=== PATIENT | female | born 1985 | race Hispanic/Latino ===

== ENCOUNTER 2018-08-24 18:25 | Inpatient (IN) | payer BC, OTHER ==
[2018-08-24] MEDS ORDERED: Sodium Chloride 0.9% 1,000 ML IV STA (18:49)
--- NOTE | 2018-08-24 18:53 | ED PDOC ---
HPI: SOB/CHF/COPD Time Seen by Provider: 08/24/18 18:35 Chief Complaint (Nursing): Shortness Of Breath History Per: Patient Onset/Duration Of Symptoms: Days (3) Current Symptoms Are (Timing): Still Present Associated Symptoms: Fever. denies: Chest Pain Recently: Treated By A Physician Additional Complaint(s): Referred from urgent care for fever, SOB. Tested positive for strep and has been treated with antibiotics. Seen at urgent care today for LLQ pain assoc with nausea and vomiting. Denies diarrhea. Denies urinary sxs. LMP ended yesterday. Past Medical History Vital Signs: Last Vital Signs Temp 101 F H 08/24/18 18:36 Pulse 113 H 08/24/18 18:36 Resp 20 08/24/18 18:36 BP 107/71 08/24/18 18:36 Pulse Ox 99 08/24/18 18:36 - Medical History PMH: No Chronic Diseases - Family History Family History: States: Unknown Family Hx - Home Medications Home Medications: Ambulatory Orders Medication Instructions Recorded Cyclobenzaprine [Cyclobenzaprine 10 mg PO Q8 PRN #12 tab 11/01/15 HCl] Naproxen [Naprosyn] 500 mg PO BID PRN #16 tablet 11/01/15 - Allergies Allergies/Adverse Reactions: Allergies Allergy/AdvReac Type Severity Reaction Status Date / Time No Known Allergies Allergy Verified 08/24/18 18:36 Review of Systems ROS Statement: Except As Marked, All Systems Reviewed And Found Negative Constitutional: Positive for: Fever Respiratory: Positive for: Shortness of Breath Gastrointestinal: Positive for: Abdominal Pain, Diarrhea Genitourinary Female: Negative for: Dysuria, Frequency Musculoskeletal: Positive for: Back Pain Physical Exam - Physical Exam Appears: Positive for: Non-toxic, No Acute Distress Skin: Positive for: Normal Color, Warm, DRY ENT: Positive for: Pharyngeal Erythema, Tonsillar Swelling. Negative for: Tonsillar Exudate Neck: Positive for: Normal, Painless ROM Cardiovascular/Chest: Positive for: Regular Rate, Rhythm, Tachycardia Respiratory: Positive for: Rhonchi (Scattered bilat). Negative for: Wheezing, Respiratory Distress Gastrointestinal/Abdominal: Positive for: Bowel Sounds, Soft, Tenderness (Left and right lower quadrants with rebound), Rebound Back: Positive for: Normal Inspection. Negative for: L CVA Tenderness, R CVA Tenderness, Vertebral Tenderness Extremity: Positive for: Normal ROM. Negative for: Tenderness, Swelling Neurologic/Psych: Positive for: Alert, Oriented. Negative for: Motor/Sensory Deficits - ECG O2 Sat by Pulse Oximetry: 99 Medical Decision Making Medical Decision Making: EKG reveals sinus tachycardia rate 115. Down sloping ST segments 2,3, AVF as well as V4 and V5. Pt states no previous EKGs done recently for comparison Will obtain troponin as well as d-dimer although pt has no risk factors for CAD or PE. Will obtain CT chest PE study as well as CT abd/pelvis. Considering possible endocarditis given recent h/o strep. Will give 1 dose Vancomycin and gentamycin Disposition - Clinical Impression Clinical Impression: SOB (shortness of breath), Abdominal pain - Patient ED Disposition Is Patient to be Admitted: Transfer of Care - Disposition Disposition: Transfer of Care Disposition Time: 19:06 Condition: FAIR Patient Signed Over To: Lynette Bush (Pending CT and labs)
[2018-08-24] MEDS ORDERED: Gentamicin 80mg/50ml NS 80 MG/50 ML BAG IVPB STA (19:03)
[2018-08-24 19:34] LABS: EOS % 0.1 % (0.0-4.0); HEMOGLOBIN 13.1 g/dL (12.0-16.0); LYMPH # 0.3 K/uL (1.0-4.3); LYMPH % 2.5 % (20.0-40.0); MEAN CELL VOLUME 91.4 fl (81.0-99.0); MEAN CORPUSCULAR HEMOGLOBIN 30.3 pg (27.0-31.0); MEAN CORPUSCULAR HGB CONC 33.1 g/dL (33.0-37.0); MEAN PLATELET VOLUME 8.2 fl (7.2-11.7); MONO # 0.6 K/uL (0.0-0.8); MONO % 5.5 % (0.0-10.0); NEUT # 10.4 K/uL (1.8-7.0); NEUT % 91.9 % (50.0-75.0); PLATELET COUNT 212 K/uL (130-400); RBC 4.33 Mil/uL (3.80-5.20); RED CELL DISTRIBUTION WIDTH 12.6 % (11.5-14.5); WHITE BLOOD COUNT 11.4 K/uL (4.8-10.8)
--- NOTE | 2018-08-24 19:34 | ED PDOC ---
- Laboratory Results Result Diagrams: 08/27/18 04:30 08/27/18 04:30 - ECG O2 Sat by Pulse Oximetry: 99 (RA) Pulse Ox Interpretation: Normal Medical Decision Making Medical Decision Making: Time: 1899 --Patient signed out to this provider by Dr. Houston, pending CT, troponin, and d dimer. Time: 2258 --CTA chest FINDINGS: PULMONARY ARTERIES No evidence of central or segmental pulmonary embolism is seen. AORTA There is no evidence for aneurysm or dissection of the thoracic aorta. LUNGS The lungs appear clear. PLEURAL SPACES No evidence of pneumothorax. No pleural effusion. HEART Normal heart size. No pericardial effusion. LYMPH NODES No lymphadenopathy is evident. BONES No focal osseous abnormality or acute fracture. UPPER ABDOMEN Images of the upper abdomen are unremarkable. IMPRESSION: Unremarkable pulmonary embolism protocol CTA of the chest. Time: 5 --CT ABD/pelvis FINDINGS: LUNG BASES: The lung bases appear clear. No pleural effusions are seen. LIVER: Unremarkable. GALLBLADDER AND BILE DUCTS: The gallbladder appears within normal limits. No radioopaque gallstones are seen. No biliary ductal dilatation is evident. PANCREAS: Unremarkable. SPLEEN: Unremarkable. ADRENAL GLANDS: Unremarkable. KIDNEYS, URETERS, AND BLADDER: The kidneys appear within normal limits. There is no hydronephrosis or hydroureter. No urinary calculi are seen. The urinary bladder is normal in size and configuration. STOMACH AND BOWEL: Unremarkable appearance of the stomach. No evidence of bowel obstruction. Mild mucosal wall thickening and fluid filling is seen within the duodenum an ileal small intestinal tract suggesting duodenitis and ileitis. APPENDIX: No evidence of acute appendicitis on CT examination. PERITONEUM: A small volume of free fluid is noted in the posterior cul-de-sac. No free air. LYMPH NODES: No lymphadenopathy is evident. REPRODUCTIVE: A 1.6 x 1.8 cm cyst is seen in the right ovary. VASCULATURE: No evidence of abdominal aortic aneurysm. BONES: No aggressive appearing osseous lesion. No acute osseous pathology evident. IMPRESSION: 1. TZaza of duodenitis and ileitis. 2. 1.8 cm right ovarian cyst. 3. A small volume of fluid is seen in the posterior cul-de-sac. Time: 0046 --Attempt to reach personal care attendant and medical service education reporter. Time: 109 --Case discussed with personal care attendant, Dr. Chang, who is agreeable to plan and has no further recommendations. Will follow up with patient at bedside in the morning. Scribe Attestation: Documented by Jayda Ko and Silvia Boston, acting as scribes for Lynette Bush MD. Provider Scribe Attestation: All medical record entries made by the Scribe were at my direction and personally dictated by me. I have reviewed the chart and agree that the record accurately reflects my personal performance of the history, physical exam, medical decision making, and the department course for this patient. I have also personally directed, reviewed, and agree with the discharge instructions and disposition. Disposition - Clinical Impression Clinical Impression: SOB (shortness of breath), Abdominal pain - POA Present On Arrival: None - Disposition Disposition: Admitted as In-Patient Disposition Time: 00:17 Condition: FAIR
[2018-08-24 19:44] LABS: ALB/GLOB RATIO 1.5 (1.0-2.1); ALBUMIN 4.3 g/dL (3.5-5.0); ALT/SGPT 17 U/L (9-52); AST/SGOT 22 U/L (14-36); BLOOD UREA NITROGEN 19 mg/dl (7-17); CALCIUM 8.6 mg/dL (8.4-10.2); GFR NON-AFRICAN AMERICAN > 60
[2018-08-24 20:12] LABS: VENOUS BLOOD GAS BASE EXCESS 3.4 mmol/L (0.0-2.0); VENOUS BLOOD GAS PCO2 36 mmHg (40-60); VENOUS BLOOD GAS PO2 21 mm/Hg (30-55); VENOUS BLOOD PH 7.48 (7.32-7.43)
[2018-08-24] MEDS ORDERED: Iodixanol 320 MG/ML 100 ML BOTTLE IV ONE (20:25)
[2018-08-24] MEDS ORDERED: Sodium Chloride 0.9% 50 ML IV ONE (20:25)
[2018-08-24 21:08] LABS: SQUAMOUS EPITHIAL 3 /hpf (0-5); URINE BACTERIA RARE (<OCC); URINE BILIRUBIN NEGATIVE (NEGATIVE); URINE BLOOD NEGATIVE (NEGATIVE); URINE COLOR YELLOW (YELLOW); URINE GLUCOSE (UA) NEG (NEGATIVE); URINE HYALINE CAST 0-2 /hpf (0-2); URINE LEUKOCYTE ESTERASE NEG Leu/uL (Negative); URINE PROTEIN 30 mg/dL (NEGATIVE); URINE UROBILINOGEN 0.2-1.0 mg/dL (0.2-1.0)
[2018-08-24 21:14] LABS: ANISOCYTOSIS SLIGHT; BANDS 5 % (0-2); EOSINOPHIL 1 % (0-7); HYPOCHROMIC SLIGHT; LYMPHOCYTE 4 % (20-50); MONOCYTE 6 % (0-10); NEUTROPHIL 84 % (42-75); PLATELET ESTIMATE NORMAL (NORMAL); TOTAL CELLS COUNTED 100
[2018-08-24 21:31] LABS: URINE CLARITY SLIGHT-CLOUDY (Clear)
[2018-08-24] MEDS ORDERED: Vancomycin 1 g Inj ONE (21:47)
[2018-08-25] MEDS ORDERED: Gentamicin 80 mg/2mL Inj. ONE (00:53)
[2018-08-25 06:23] LABS: HEMOGLOBIN 11.7 g/dL (12.0-16.0); MEAN CELL VOLUME 90.6 fl (81.0-99.0); MEAN CORPUSCULAR HEMOGLOBIN 30.8 pg (27.0-31.0); RBC 3.8 Mil/uL (3.80-5.20); RED CELL DISTRIBUTION WIDTH 12.5 % (11.5-14.5); WHITE BLOOD COUNT 4.8 K/uL (4.8-10.8)
[2018-08-25 06:38] LABS: ALB/GLOB RATIO 1.3 (1.0-2.1); ALBUMIN 3.4 g/dL (3.5-5.0); ALT/SGPT 24 U/L (9-52); AST/SGOT 18 U/L (14-36); BLOOD UREA NITROGEN 18 mg/dl (7-17); CALCIUM 7.9 mg/dL (8.4-10.2); GFR NON-AFRICAN AMERICAN > 60; HDL CHOLESTEROL 34 MG/DL (30-70)
[2018-08-25 06:47] LABS: LDL CHOLESTEROL 36 mg/dL (0-129)
--- NOTE | 2018-08-25 09:45 | CT ---
Date of service: 08/24/2018 PROCEDURE: CT Chest with contrast (Pulmonary Angiogram) HISTORY: SOB, Tachycardia COMPARISON: None available. TECHNIQUE: Axial computed tomography images were obtained of the chest in the pulmonary arterial phase of enhancement. Coronal and sagittal reformatted images were created and reviewed. Intravenous contrast dose: 95 mL Visipaque 320 Radiation dose: Total exam DLP = 528.98 mGy-cm. This CT exam was performed using one or more of the following dose reduction techniques: Automated exposure control, adjustment of the mA and/or kV according to patient size, and/or use of iterative reconstruction technique. FINDINGS: PULMONARY ARTERIES: Unremarkable. No pulmonary embolism. AORTA: No acute findings. No thoracic aortic aneurysm. No aortic atherosclerotic calcification or mural plaque present. LUNGS: Unremarkable. No nodule, mass or pulmonary consolidation. PLEURAL SPACES: Unremarkable. No effusion or pneumothorax. HEART: Unremarkable. No cardiomegaly. No significant pericardial effusion. LYMPH NODES: No lymphadenopathy. BONES, CHEST WALL: Unremarkable. No fracture or destructive lesion OTHER FINDINGS: Unremarkable. IMPRESSION: Unremarkable CT pulmonary angiogram. No pulmonary embolus.
--- NOTE | 2018-08-25 10:01 | CT ---
Date of service: 08/24/2018 PROCEDURE: CT Abdomen and Pelvis with contrast HISTORY: Abd pain COMPARISON: None. TECHNIQUE: Contrast dose: 95 mL Visipaque 320 Radiation dose: Total exam DLP = 322.91 mGy-cm. This CT exam was performed using one or more of the following dose reduction techniques: Automated exposure control, adjustment of the mA and/or kV according to patient size, and/or use of iterative reconstruction technique. FINDINGS: LOWER THORAX: Unremarkable. LIVER: Unremarkable. No gross lesion or ductal dilatation. GALLBLADDER AND BILE DUCTS: Unremarkable. PANCREAS: Unremarkable. No gross lesion or ductal dilatation. SPLEEN: Unremarkable. ADRENALS: Unremarkable. No mass. KIDNEYS AND URETERS: Unremarkable. No hydronephrosis. No solid mass. VASCULATURE: Unremarkable. No aortic aneurysm. No aortic atherosclerotic calcification or mural plaque present. BOWEL: Unremarkable. No obstruction. No gross mural thickening. APPENDIX: Normal appendix. PERITONEUM: Unremarkable. Trace pelvic free fluid. No free air. LYMPH NODES: Unremarkable. No enlarged lymph nodes. BLADDER: Unremarkable. REPRODUCTIVE: Prominent follicular ovaries. BONES: No acute fracture. OTHER FINDINGS: None. IMPRESSION: Unremarkable contrast enhanced CT of the abdomen and pelvis.
--- NOTE | 2018-08-25 10:11 | RAD ---
Date of service: 08/24/2018 HISTORY: Cough COMPARISON: Chest radiograph dated 11/01/2015. TECHNIQUE: Chest PA and lateral FINDINGS: LUNGS: No active pulmonary disease. PLEURA: No significant pleural effusion identified. No pneumothorax apparent. CARDIOVASCULAR: No aortic atherosclerotic calcification present. Normal cardiac size. No pulmonary vascular congestion. OSSEOUS STRUCTURES: No significant abnormalities. VISUALIZED UPPER ABDOMEN: Normal. OTHER FINDINGS: None. IMPRESSION: No active disease.
[2018-08-25] MEDS: Enoxaparin 40 mg Syringe SC SCH (10:49)
[2018-08-25 14:08] LABS: BARBITURATES, UR NEGATIVE (NEGATIVE); BENZODIAZEPINES, UR NEGATIVE (NEGATIVE); OPIATES, UR NEGATIVE (NEGATIVE); PHENCYCLIDINE, UR NEGATIVE (NEGATIVE)
--- NOTE | 2018-08-25 18:45 | CARD ---
APPROVED REPORT Date of service: 08/25/2018 EXAM: Two-dimensional and M-mode echocardiogram with Doppler and color Doppler. Other Information Quality : GoodRhythm : NSR INDICATION Abnormal EKG/Arrhythmia 2D DIMENSIONS IVSd0.65 (0.7-1.1cm)LVDd4.70 (3.9-5.9cm) LVOT Diameter2.43 (1.8-2.4cm)PWd0.86 (0.7-1.1cm) IVSs0.99 (0.8-1.2cm)LVDs3.14 (2.5-4.0cm) FS (%) 33.2 %PWs1.43 (0.8-1.2cm) M-Mode DIMENSIONS Left Atrium (MM)3.30 (2.5-4.0cm)IVSd0.53 (0.7-1.1cm) Aortic Root2.53 (2.2-3.7cm)LVDd4.61 (4.0-5.6cm) Aortic Cusp Exc.1.96 (1.5-2.0cm)PWd0.98 (0.7-1.1cm) IVSs0.91 cmFS (%) 35 % LVDs3.01 (2.0-3.8cm)PWs1.51 cm Aortic Valve AoV Peak Zvjjerou622.9cm/sAoV VTI27.0cmAO Peak GR.8mmHg LVOT Peak Jnpsmqae771.3cm/sLVOT VTI21.93cmAO Mean GR.4mmHg CAT[place]INA (VMAX)1.48to1LFA (VTI)2.04cm2 Mitral Valve MV E Ktqhhpor41.8cm/sMV DECEL [id number] A Iwbxgkxu07.5cm/s MV TRM74feI/A ratio2.0MVA (PHT)3.49cm2 TDI Lateral E' Peak V18.90cm/sMedial E' Peak V15.07cm/sE/Lateral E'3.5 E/Medial E'4.4 LEFT VENTRICLE The left ventricle is normal size. There is normal left ventricular wall thickness. The left ventricular systolic function is normal. The estimated ejection fraction is 60-65% No regional wall motion abnormalities noted.. The left ventricular diastolic function is normal. No left ventricle thrombus noted on this study. There is no ventricular septal defect visualized. There is no left ventricular aneurysm. There is no mass noted in the left ventricle. RIGHT VENTRICLE The right ventricle is normal size. There is normal right ventricular wall thickness. The right ventricular systolic function is normal. ATRIA The left atrium size is normal. The right atrium size is normal. Cannot rule out the possibility of PFO or small ASD. AORTIC VALVE The aortic valve is normal in structure. No aortic regurgitation is present. There is no aortic valvular stenosis. There is no aortic valvular vegetation. MITRAL VALVE The mitral valve is normal in structure. There is no evidence of mitral valve prolapse. There is no mitral valve stenosis. There is trace mitral valve regurgitation noted. TRICUSPID VALVE The tricuspid valve is normal in structure. There is no tricuspid valve regurgitation noted. There is no tricuspid valve prolapse or vegetation. There is no tricuspid valve stenosis. PULMONIC VALVE The pulmonary valve is normal in structure. There is no pulmonic valvular regurgitation. There is no pulmonic valvular stenosis. GREAT VESSELS The aortic root is normal in size. The ascending aorta is normal in size. The pulmonary artery is normal. The IVC is normal in size and collapses >50% with inspiration. PERICARDIAL EFFUSION There is no pericardial effusion. There is no pleural effusion. <Conclusion> The estimated ejection fraction is 60-65% The left ventricular diastolic function is normal. The left atrium size is normal. There is trace mitral valve regurgitation noted. There is no tricuspid valve regurgitation noted.
--- NOTE | 2018-08-25 19:44 | HP ---
CHIEF COMPLAINT: Shortness of breath, chest pain and generalized body ache. HISTORY OF PRESENT ILLNESS: This is a 33-year-old female who had strep infection and was having generalized body ache, generalized malaise, weakness or abdominal pain, chest pain, shortness of breath, so the patient was sent to emergency room and was admitted for further management. REVIEW OF SYSTEMS: Positive for generalized malaise, weakness, fatigue, tired, generalized body ache, abdominal pain, chest pain, shortness of breath. Review of systems is otherwise is negative for headache, dizziness, syncope, loss of consciousness, nausea, vomiting, diarrhea, constipation, any new joint or extremity pain. Review of system of all other organ system is unremarkable. PAST MEDICAL HISTORY: Significant for anxiety. PAST SURGICAL HISTORY: Unremarkable. PERSONAL HISTORY: The patient is currently nonsmoker, nondrinker, no substance abuse. MEDICATIONS: The patient is on naproxen and . ALLERGIES: THE PATIENT IS NOT ALLERGIC TO ANY MEDICATIONS. FAMILY HISTORY: Noncontributory. PHYSICAL EXAMINATION: GENERAL: Well-built, well-nourished 33-year-old female in no acute distress. VITAL SIGNS: Temperature 97.9, pulse 80, respirations 19, blood pressure 97/61. No orthostatic changes. HEENT: Pupils reacting to light. No JVD. No thyromegaly. No lymphadenopathy. No nystagmus. Normocephalic, atraumatic skull. HEART: S1 and S2, normal and regular. No significant murmur, gallop or rub is heard. LUNGS: Shows good bilateral air exchange. No rales or rhonchi. ABDOMEN: Soft, nontender. No organomegaly. No fluid. Bowel sounds are plus and normal. EXTREMITIES: No edema. No calf swelling or tenderness. No acute ischemia. CENTRAL NERVOUS SYSTEM: Essentially unchanged and there is no sign of any acute gross focal motor or sensory neurological deficit. DIAGNOSTIC DATA: Available diagnostic data reviewed. WBC 11.4, hemoglobin 13.1, hematocrit 39.6, platelets 212. Sodium 137, potassium 3.3, chloride 99, bicarb 24, BUN 19, creatinine 0.8. SMA-12 was unremarkable. Troponin level two sets are negative so far. Vitamin B12 level is 397. Streptococcus group A beta positive. Chest x-ray Is clear. CT scan of the chest is clear. Echocardiogram is done, report is pending. EKG does not reveal any acute ST-T changes. ADMITTING IMPRESSION: Chest pain, Streptococcal pharyngitis, duodenitis and ileitis, ovarian cyst, and anxiety. PLAN: As ordered. Case and plan discussed with the patient. Telemetry monitoring did not reveal any significant arrhythmias. Donell Harrison MD
--- NOTE | 2018-08-25 23:42 | CON ---
DATE: 08/25/2018 CARDIOLOGY CONSULTATION REASON FOR CONSULTATION: Abnormal EKG and shortness of breath. HISTORY OF PRESENT ILLNESS: The patient is a 33-year-old female, who has no known prior cardiac history, has a history of anxiety, on maintenance dose of Prozac. She initially was admitted because of shortness of breath and fever. The patient few days earlier experienced sore throat and was diagnosed with strep throat and was given oral penicillin. Subsequently, the patient started to develop fever and chills. The patient denies any nausea, vomiting, or diarrhea. The patient did report some chest tightness with her shortness of breath. SOCIAL HISTORY: Nonsmoker and nondrinker. She works in [employer] an [employer]. MENSTRUAL HISTORY: The patient's last menses completed 3 days ago. OBSTETRIC HISTORY: The patient was once, but apparently had a miscarriage few years ago. REVIEW OF SYSTEMS: No dizziness or syncope, no recent fall, no dysuria, and no abdominal pain. PHYSICAL EXAMINATION: GENERAL: The patient is a young middle-aged female, who does not appear to be in acute distress. VITAL SIGNS: Blood pressure 93/52, heart rate 84, temperature 98.1, and respirations 18. HEENT: Normocephalic. NECK: No JVD. CHEST: Clear. HEART: S1 and S2, regular. ABDOMEN: Soft. EXTREMITIES: No edema. LABORATORY DATA: CBC today: White count 4.8, hemoglobin and hematocrit 11.7 and 34.5, and platelet count 177,000. Today's SMA-7: Sodium 139, potassium 3.7, chloride 101, CO2 of 29, glucose 97, BUN 18, and creatinine 0.8. Two sets of troponins are negative. Yesterday's potassium was 3.3. D-dimer was 275. Group A beta strep antigen was positive. Abdomen and pelvis CT scan with IV contrast, unremarkable contrast enhanced CT scan of the abdomen and pelvis. CT angio of the chest, unremarkable CT angio, no pulmonary embolus. Review of the EKGs: Initial EKG revealed sinus tachycardia at the rate of [address]-segment changes. Subsequent EKG done one minute later revealed sinus tachycardia of 107 with the same inferolateral ischemic ST-segment changes. Today's EKG revealed sinus rhythm at the rate of 79 with resolution of the ischemic EKG changes except for residual inversion of T-waves in anterior leads. The V6 had negative QRS restriction, which could be a lead misplacement; however, a repeat EKG will be obtained. Chest x-ray was unremarkable. ASSESSMENT: 1. Inferolateral ischemia, myocardial infarction is ruled out. 2. Strep throat. 3. Rule out septic bacteremia. 4. Improved hypokalemia. 5. History of depression. 6. History of anxiety. RECOMMENDATIONS: Continue subcutaneous Lovenox at 40 mg once a day, Prozac 20 mg once a day, and start aspirin 81 mg once a day. I will review echocardiograph study performed today. Repeat 12-lead EKG and follow up blood cultures. Ken Chang MD
[2018-08-26 06:56] LABS: HEMOGLOBIN 11.9 g/dL (12.0-16.0); MEAN CELL VOLUME 90.4 fl (81.0-99.0); MEAN CORPUSCULAR HGB CONC 34.3 g/dL (33.0-37.0); RBC 3.83 Mil/uL (3.80-5.20); RED CELL DISTRIBUTION WIDTH 12.6 % (11.5-14.5); WHITE BLOOD COUNT 4.5 K/uL (4.8-10.8)
[2018-08-26 07:15] LABS: ALB/GLOB RATIO 1.3 (1.0-2.1); ALBUMIN 3.3 g/dL (3.5-5.0); ALT/SGPT 26 U/L (9-52); AST/SGOT 22 U/L (14-36); BLOOD UREA NITROGEN 13 mg/dl (7-17); CALCIUM 8.5 mg/dL (8.4-10.2); GFR NON-AFRICAN AMERICAN > 60
[2018-08-26] MEDS: Enoxaparin 40 mg Syringe SC SCH ×2 (08:50→16:33)
[2018-08-26] MEDS ORDERED: levoFLOXacin 250 mg in D5W 250 MG/50 ML BAG IVPB SCH (09:00)
--- NOTE | 2018-08-26 10:07 | CARD ---
APPROVED REPORT Date of service: 08/25/2018 EKG Measurement Heart [id number] FL [id number] [id number] <Conclusion> Normal sinus rhythm Voltage criteria for left ventricular hypertrophy Abnormal ECG
--- NOTE | 2018-08-26 10:19 | CARD ---
APPROVED REPORT Date of service: 08/24/2018 EKG Measurement Heart [id number] [place] 122P88 [id number] <Conclusion> Sinus tachycardia Left ventricular hypertrophy with secondary repolarization abnormalities Nonspecific ST-T changes Abnormal ECG
--- NOTE | 2018-08-26 10:19 | CARD ---
APPROVED REPORT Date of service: 08/24/2018 EKG Measurement Heart [id number] [place] 124P84 [id number] <Conclusion> Sinus tachycardia Left ventricular hypertrophy with secondary repolarization abnormalities Nonspecific ST-T changes Abnormal ECG
--- NOTE | 2018-08-26 10:29 | PN ---
DATE: 08/26/2018 SUBJECTIVE: The patient seen and examined. Interim events noted. The patient remains in progressive care unit with telemetry monitoring. Feels okay. Denies any chest pain or shortness of breath. Feels much better overall. PHYSICAL EXAMINATION: GENERAL: The patient is in no acute distress. VITAL SIGNS: Stable. HEART: S1 and S2, normal and regular. LUNGS: Good bilateral air exchange. ABDOMEN: Soft, nontender. EXTREMITIES: No edema. No calf swelling. No tenderness. No acute ischemia. CENTRAL NERVOUS SYSTEM: Exam is essentially unchanged. DIAGNOSTICS: Available diagnostic data reviewed. ASSESSMENT AND PLAN: Overall, the patient's general medical condition is stable. Echocardiogram is unremarkable. Cardiology consults noted and appreciated. The patient is medically stable. Plan as ordered. Donell Harrison MD
--- NOTE | 2018-08-26 12:28 | CP.PCM.CON ---
History of Present Illness - History of Present Illness History of Present Illness: 33 yo female with no major health problems was referred to ER for admission for fever and abd pain with assoc nausea and vomiting but no diarrhea Also had chest pain on admission but ACS ruled out Was recently treated in Jul for strep throat and took Pen VK for 10 days Denies travel except to [place] in Jun and [place] last month Denies bites, ticks, ill contacts c/o joint pain- right elbow but abdominal symptoms have resolved Denies rash No sore throat - Medical History PMH: No Chronic Diseases [place] + in remote past Meds - zoloft FH + Cancer and Heart issues NKDA SH- no smoking or drinking no drugs Review of Systems - Review of Systems All systems: reviewed and no additional remarkable complaints except - Constitutional Constitutional: As Per HPI, Chills, Fever, Malaise - EENT Eyes: absent: As Per HPI, Blind Spots, Blurred Vision, Change in Vision, Decreased Night Vision, Diplopia, Discharge, Dry Eye, Exophthalmos, Floaters, Irritation, Itchy Eyes, Loss of Peripheral Vision, Pain, Photophobia, Requires Corrective Lenses, Sees Flashes, Spots in Vision, Tunnel Vision, Other Visual Disturbances, Loss of Vision, Other Ears: absent: As Per HPI, Decreased Hearing, Ear Discharge, Ear Pain, Tinnitus, Abnormal Hearing, Disequilibrium, Dizziness, Other Nose/Mouth/Throat: absent: As Per HPI, Epistaxis, Nasal Congestion, Nasal Discharge, Nasal Obstruction, Nasal Trauma, Nose Pain, Post Nasal Drip, Sinus Pain, Sinus Pressure, Bleeding Gums, Change in Voice, Dental Pain, Dry Mouth, Dysphagia, Halitosis, Hoarsness, Lip Swelling, Mouth Lesions, Mouth Pain, Odynophagia, Sore Throat, Throat Swelling, Tongue Swelling, Facial Pain, Neck Pain, Neck Mass, Other - Breasts Breasts: absent: As Per HPI, Change in Shape, Mass, Pain, Nipple Discharge, Nipple Inversion, Skin Changes, Swelling, Other - Cardiovascular Cardiovascular: As Per HPI - Respiratory Respiratory: absent: As Per HPI, Cough, Dyspnea, Hemoptysis, Dyspnea on Exertion, Wheezing, Snoring, Stridor, Pain on Inspiration, Chest Congestion, Excessive Mucous Production, Change in Mucous Color, Pain with Coughing, Other - Gastrointestinal Gastrointestinal: absent: As Per HPI, Abdominal Pain, Belching, Bloating, Change in Bowel Habits, Change in Stool Character, Coffee Ground Emesis, Constipation, Cramping, Diarrhea, Dyspepsia, Dysphagia, Early Satiety, Excessive Flatus, Fecal Incontinence, Heartburn, Hematemesis, Hematochezia, Loose Stools, Melena, N ausea, Odynophagia, Temesmus, Vomiting, Other - Genitourinary Genitourinary: absent: As Per HPI, Change in Urinary Stream, Difficulty Urinating, Dysuria, Flank Pain, Hematuria, Pyuria, Nocturia, Urinary Incontinence, Urinary Frequency, Urinary Hesitance, Urinary Urgency, Voiding Freq/Small Amts, Freq UTI, Hx Renal/Bladder Calculi, Hx /Renal Surgery, Bladder Distension, Other - Reproductive: Female Reproductive:Female: absent: As Per HPI, Amenorrhea, Amenorrhea/ Control, Currently Menstual, Cycle <21 Days, Cycle >35 Days, Cycle Variable, Menses 1-7 Days, Menses >/= 8 Days, Menses Variable, Cycle > 4 Weeks Between, No Menses for 6 Months, Heavy Menses, Light Menses, Normal Menses, Spotting Between Cycles, S/ P Hysterectomy, Menopausal, Post Menopausal, Premenarche, Abnormal Vaginal Bleeding, Dysmenorrhea, Dyspareunia, Genital Lesions, Genital Pruritis, Pelvic Pain, Prolapse Symptoms, Sexual Dysfunction, Vaginal Discharge, Vaginal Dryness, Vaginal Odor, Vaginal Pruritis, Other - Menstruation Menstruation: absent: As Per HPI, Amenorrhea, Amenorrhea/ Control, C urrently Menstual, Cycle <21 Days, Cycle >35 Days, Cycle Variable, Menses 1-7 Days, Menses >/= 8 Days, Menses Variable, Cycle > 4 Weeks Between, No Menses for 6 Months, Heavy Menses, Light Menses, Normal Menses, Spotting Between Cycles, S/P Hysterectomy, Menopausal, Post Menopausal, Premenarche, Abnormal Vaginal Bleeding, Dysmenorrhea, Other - Musculoskeletal Musculoskeletal: As Per HPI - Integumentary Integumentary: absent: As Per HPI, Acne, Alopecia, Bleeding Lesions, Change in Hair, Change in Nails, Change in Pigmentation, Changing Lesions, Dry Skin, Erythema, Furuncle, Hirsutism, Lesions, New Lesions, Non-Healing Lesions, Photosensitivity, Pruritus, Rash, Skin Pain, Skin Ulcer, Sores, Striae, Swelling, Unusual Bruising, Wounds, Jaundice, Other - Neurological Neurological: absent: As Per HPI, Abnormal Gait, Abnormal Hearing, Abnormal Movements, Abnormal Speech, Behavioral Changes, Burning Sensations, Confusion, Convulsions, Disequilibrium, Dizziness, Numbness, Focal Weakness, Frequent Falls, Headaches, Lack of Coordination, Loss of Vision, Memory Loss, Paresthesia s, Radicular Pain, Restless Legs, Sensory Deficit, Syncope, Tingling, Tremor, Vertigo, Weakness, Other Visual Disturbances, Other - Psychiatric Psychiatric: absent: As Per HPI, Abnormal Sleep Pattern, Anhedonia, Anxiety, Auditory Hallucinations, Behavioral Changes, Change in Appetite, Change in Libido, Confusion, Depression, Difficulty Concentrating, Hallucinations, Homicidal Ideation, Hopelessness, Irritability, Memory Loss, Mood Swings, Panic Attacks, Paranoia, Suicidal Ideation, Visual Hallucinations, Tactile Hallucinations, Other - Endocrine Endocrine: absent: As Per HPI, Change in Body Appearance, Change in Libido, Cold Intolorance, Deepening of Voice, Excessive Sweating, Fatigue, Flushing, Heat Intolorance, Increase in Ring/Shoe/Hat Size, Palpitations, Polydipsia, Polyphagia, Polyuria, Other - Hematologic/Lymphatic Hematologic: absent: As Per HPI, Easy Bleeding, Easy Bruising, Lymphadenopathy, Other Past Patient History - Infectious Disease Hx of Infectious Diseases: None - Past Medical History & Family History Past Medical History?: No - Past Social History Smoking Status: Former Smoker - MUSCULOSKELETAL/RHEUMATOLOGICAL Hx Falls: Yes (Patient states she sometimes gets dizzy and faints) - PSYCHIATRIC Hx Substance Use: No - SURGICAL HISTORY Hx Surgeries: No - ANESTHESIA Hx Anesthesia: No Hx Anesthesia Reactions: No Hx Malignant Hyperthermia: No Has any member of the family had a problem w/ anesthesia?: No Meds Allergies/Adverse Reactions: Allergies Allergy/AdvReac Type Severity Reaction Status Date / Time No Known Allergies Allergy Verified 08/24/18 18:36 - Medications Medications: Current Medications Aspirin (Aspirin Chewable) 81 mg PO DAILY [facility] Last Admin: 08/26/18 08:49 Dose: 81 mg Enoxaparin Sodium (Lovenox) 40 mg SC DAILY [facility]; Protocol Last Admin: 08/26/18 08:50 Dose: Not Given Fluoxetine HCl (Prozac) 20 mg PO DAILY [facility] Last Admin: 08/26/18 08:50 Dose: 20 mg Levofloxacin/Dextrose (Levaquin 250mg) 250 mg in 50 mls @ 50 mls/hr IVPB DAILY [facility]; Protocol Last Admin: 08/26/18 08:49 Dose: 50 mls/hr Physical Exam - Constitutional Appears: Non-toxic, No Acute Distress - Head Exam Head Exam: ATRAUMATIC, NORMAL INSPECTION, NORMOCEPHALIC - Eye Exam Eye Exam: absent: Scleral icterus - ENT Exam ENT Exam: Mucous Membranes Dry, Normal External Ear Exam - Neck Exam Neck exam: Negative for: Lymphadenopathy - Respiratory Exam Respiratory Exam: Decreased Breath Sounds - Cardiovascular Exam Cardiovascular Exam: REGULAR RHYTHM - GI/Abdominal Exam GI & Abdominal Exam: Diminished Bowel Sounds, Soft. absent: Tenderness - Rectal Exam Rectal Exam: Deferred - Exam Exam: NORMAL INSPECTION - Extremities Exam Extremities exam: Negative for: pedal edema - Back Exam Back exam: absent: CVA tenderness (L), CVA tenderness (R), paraspinal tenderness - Neurological Exam Neurological exam: Alert, CN II-XII Intact, Oriented x3, Reflexes Normal - Psychiatric Exam Psychiatric exam: Normal Mood - Skin Skin Exam: Dry, Intact Results - Vital Signs Recent Vital Signs: Last Vital Signs Temp 97.9 F 08/26/18 08:00 Pulse 64 08/26/18 09:00 Resp 19 08/26/18 08:00 BP 97/58 L 08/26/18 08:00 Pulse Ox 98 08/26/18 08:00 - Labs Result Diagrams: 08/26/18 05:29 08/26/18 05:29 Labs: Laboratory Results - last 24 hr 08/25/18 08/25/18 08/26/18 12:50 13:37 05:29 WBC 4.5 L RBC 3.83 Hgb 11.9 L Hct 34.6 MCV 90.4 MCH 31.0 MCHC 34.3 RDW 12.6 Plt Count 180 Sodium Potassium Chloride Carbon Dioxide Anion Gap BUN Creatinine Est GFR ( Amer) Est GFR (Non-Af Amer) Random Glucose Calcium Phosphorus Magnesium Total Bilirubin AST ALT Alkaline Phosphatase Troponin I < 0.0120 Total Protein Albumin Globulin Albumin/Globulin Ratio Urine Opiates Screen Negative Urine Methadone Screen Negative Ur Barbiturates Screen Negative Ur Phencyclidine Scrn Negative Ur Amphetamines Screen Negative U Benzodiazepines Scrn Negative U Oth Cocaine Metabols Negative U Cannabinoids Screen Positive H 08/26/18 05:29 WBC RBC Hgb Hct MCV MCH MCHC RDW Plt Count Sodium 139 Potassium 4.0 Chloride 103 Carbon Dioxide 25 Anion Gap 15 BUN 13 Creatinine 0.8 Est GFR ( Amer) > 60 Est GFR (Non-Af Amer) > 60 Random Glucose 82 Calcium 8.5 Phosphorus 3.9 Magnesium 2.1 Total Bilirubin 0.1 L AST 22 ALT 26 Alkaline Phosphatase 39 Troponin I Total Protein 6.0 L Albumin 3.3 L Globulin 2.6 Albumin/Globulin Ratio 1.3 Urine Opiates Screen Urine Methadone Screen Ur Barbiturates Screen Ur Phencyclidine Scrn Ur Amphetamines Screen U Benzodiazepines Scrn U Oth Cocaine Metabols U Cannabinoids Screen Assessment & Plan - Assessment and Plan (Free Text) Assessment: 33 yo female with no major health problems was referred to ER for admission for fever and abd pain with assoc nausea and vomiting but no diarrhea Also had chest pain on admission but ACS ruled out Was recently treated in Jul for strep throat and took Pen VK for 10 days De nies travel except to [place] in Jun and [place] last month Denies bites, ticks, ill contacts c/o joint pain- right elbow but abdominal symptoms have resolved Denies rash No sore throat Strep Ag positive in blood on Levaquin will switch to Rocephin awat echo/cardio eval May need AFIA to r/o invasive strep check ASO titer , RF , SEFERINO Await final blood cultures
[2018-08-26] MEDS ORDERED: cefTRIAXone 2 GM in Sodium Chloride 0.9% 100 ML IVPB SCH (12:45)
[2018-08-26] MEDS: cefTRIAXone 2 GM in Sodium Chloride 0.9% 100 ML IVPB SCH (16:26)
--- NOTE | 2018-08-26 21:11 | PN ---
DATE: 08/26/2018 SUBJECTIVE: The patient denies any shortness of breath. She reported some sharp right-sided chest discomfort. PHYSICAL EXAMINATION: VITAL SIGNS: Blood pressure 109/72, heart rate 73, temperature 97.7, respirations 19. HEENT: Normocephalic. CHEST: Clear. HEART: S1 and S2, regular. ABDOMEN: Soft. EXTREMITIES: No edema. LABORATORY DATA: Report of blood culture so far no growth after 24 hours; however, apparently Dr. Phillips was informed about positive blood culture. The only available test is group A beta-Strep antigen is positive in the serology test. ASSESSMENT: 1. Significant inferolateral ST-segment depression on admission which is resolved. 2. Rule out Streptococcal bacteremia. 3. Anxiety disorder. RECOMMENDATIONS: Continue current aspirin 81 mg once a day, Lovenox 40 mg subcutaneous once a day, Rocephin at 2 g intravenously daily. We will discuss with Dr. Phillips the necessity of AFIA in view of group A beta-Strep antigen positivity only if the blood culture remains negative. Ken Chang MD
[2018-08-26 22:02] LABS: ANTI STREPTOLYSIN O NEGATIVE (NEGATIVE)
[2018-08-27 05:30] LABS: HEMOGLOBIN 12.5 g/dL (12.0-16.0); MEAN CORPUSCULAR HEMOGLOBIN 30.7 pg (27.0-31.0); MEAN CORPUSCULAR HGB CONC 34.1 g/dL (33.0-37.0); RBC 4.07 Mil/uL (3.80-5.20); RED CELL DISTRIBUTION WIDTH 12.7 % (11.5-14.5)
[2018-08-27 05:54] LABS: ALB/GLOB RATIO 1.3 (1.0-2.1); ALBUMIN 3.7 g/dL (3.5-5.0); ALT/SGPT 17 U/L (9-52); AST/SGOT 18 U/L (14-36); BLOOD UREA NITROGEN 14 mg/dl (7-17); CALCIUM 8.6 mg/dL (8.4-10.2); GFR NON-AFRICAN AMERICAN > 60
--- NOTE | 2018-08-27 08:57 | PN ---
DATE: 08/27/2018 SUBJECTIVE: The patient seen and examined. Interim events noted. Consults noted and appreciated. Cardiology and Infectious Disease followup and interventions noted and appreciated. The patient remains in progressive care unit with telemetry monitoring. The patient feels okay. Complains of generalized weakness and malaise, but no chest pain or shortness of breath. PHYSICAL EXAMINATION: GENERAL: The patient is in no acute distress. VITAL SIGNS: Stable. HEART: S1 and S2, normal and regular. LUNGS: Good bilateral air exchange. ABDOMEN: Soft, nontender. EXTREMITIES: No edema, no calf swelling, no tenderness. No acute ischemia. CENTRAL NERVOUS SYSTEM: Exam is essentially unchanged. DIAGNOSTIC DATA: Available diagnostic data reviewed. Telemetry monitoring does not show arrhythmias. ASSESSMENT AND PLAN: Overall, the patient's general medical condition is stable and improved. Streptococcus antigen in the blood is positive. Blood culture remains negative. Plan as ordered. Donell Harrison MD
[2018-08-27] MEDS: Enoxaparin 40 mg Syringe SC SCH (09:28)
[2018-08-27] MEDS: Lactobacillus Acidophilus 500 MU Cap PO SCH ×2 (13:08→17:04)
--- NOTE | 2018-08-27 13:13 | CP.PCM.PCO ---
Assessment & Plan - Assessment and Plan (Free Text) Assessment: patient seen and examined denies sob, c/o mild RUL cp intermittent, denies palpitations, fever, chills or sore throat pt.w/ Group Strep Ab positive pt. on Rocephin 2gm iv daily D/w and ; pt. scheduled for AFIA tomorrow at 2 pm w/ NPO past midnight d/w patient who is in agreement
[2018-08-27] MEDS: cefTRIAXone 2 GM in Sodium Chloride 0.9% 100 ML IVPB SCH (16:56)
[2018-08-27 17:08] LABS: ANA PATTERN HOMOGENOUS
--- NOTE | 2018-08-27 17:30 | CP.PCM.PN ---
Subjective - Date & Time of Evaluation Date of Evaluation: 08/27/18 Time of Evaluation: 08:00 - Subjective Subjective: awake alert afebrile anxious no pain at present no fever Objective - Vital Signs/Intake and Output Vital Signs (last 24 hours): Temp Pulse Resp BP Pulse Ox 98.3 F 69 18 97/61 L 98 08/27/18 16:06 08/27/18 16:06 08/27/18 16:06 08/27/18 16:06 08/27/18 16:06 - Medications Medications: Current Medications Aspirin (Aspirin Chewable) 81 mg PO DAILY [facility] Last Admin: 08/27/18 09:27 Dose: 81 mg Enoxaparin Sodium (Lovenox) 40 mg SC DAILY [facility]; Protocol Last Admin: 08/27/18 09:28 Dose: 40 mg Fluoxetine HCl (Prozac) 20 mg PO DAILY [facility] Last Admin: 08/27/18 09:27 Dose: 20 mg Ceftriaxone Sodium 2 gm/ (Sodium Chloride) 100 mls @ 100 mls/hr IVPB Q24H [facility]; Protocol Last Admin: 08/27/18 16:56 Dose: 100 mls/hr Lactobacillus Acidophilus (Bacid Acidophilus) 1 cap PO BID [facility] Last Admin: 08/27/18 17:04 Dose: 1 cap - Labs Labs: 08/27/18 04:30 08/27/18 04:30 - Constitutional Appears: Non-toxic, Chronically Ill - Head Exam Head Exam: NORMOCEPHALIC - Eye Exam Eye Exam: absent: Scleral icterus - ENT Exam ENT Exam: Mucous Membranes Dry - Neck Exam Neck Exam: absent: Lymphadenopathy - Respiratory Exam Respiratory Exam: Decreased Breath Sounds - Cardiovascular Exam Cardiovascular Exam: REGULAR RHYTHM, +S1, +S2 - GI/Abdominal Exam GI & Abdominal Exam: Soft. absent: Tenderness - Rectal Exam Rectal Exam: Deferred - Exam Exam: NORMAL INSPECTION - Extremities Exam Extremities Exam: absent: Pedal Edema - Back Exam Back Exam: absent: CVA tenderness (L), CVA tenderness (R) - Neurological Exam Neurological Exam: Alert, Awake, CN II-XII Intact, Oriented x3 Neuro motor strength exam: Left Upper Extremity: 5, Right Upper Extremity: 5, Left Lower Extremity: 5, Right Lower Extremity: 5 - Psychiatric Exam Psychiatric exam: Anxious - Skin Skin Exam: Dry, Intact Assessment and Plan - Assessment and Plan (Free Text) Assessment: 33 yo female with recent episode of strep throat was treated with Pen VK x 10 days admitted with chest pain and abnormal EKG but no hallmark signs of RF All cultures have been negative and repeat Grp A strep Ag in blood neg as well For AFIA in am - If negative can follow up with Dr Harrison
--- NOTE | 2018-08-27 21:53 | PN ---
DATE: 08/27/2018 SUBJECTIVE: The patient denies any chest pain, shortness of breath, fever or chills. PHYSICAL EXAMINATION: VITAL SIGNS: Blood pressure 97/61, heart rate 69, temperature 98.3, and respirations 18. HEENT: Normocephalic. NECK: No JVD. CHEST: Clear. HEART: S1 and S2, regular. ABDOMEN: Soft. EXTREMITIES: No edema. LABORATORY DATA: CBC: WBC 5, hemoglobin 12.5, hematocrit 36.6, platelet count 198,000. SMA-7: Sodium 139, potassium 3.9, chloride 105, CO2 of 26, glucose 87, BUN 14, creatinine 0.8. SEFERINO 6 profile is positive. SEFERINO pattern is homogeneous. Rheumatoid factor is negative. Blood culture is negative after 48 hours. ASSESSMENT: 1. Recent strep throat. The patient's serology is positive for group A beta strep antigen. The patient was recommended by Dr. Phillips to undergo transesophageal echocardiography. 2. Anxiety disorder. RECOMMENDATIONS: Continue current aspirin 81 mg once a day, Rocephin 2 g intravenously daily, Prozac 20 mg once a day. Transesophageal echocardiograph study procedure and its risks were fully explained to the patient who understood them and agreed for the procedure, which is scheduled for tomorrow around 1 p.m. at [facility]. The patient will be kept n.p.o. after midnight. The patient as per her workup stated that she had a regular dental cleaning in 06/2018 which she gets every six months. There was no anesthesia involved or bleeding reported. There is no recent deep cleaning or root canal workup or dental extraction. Ken Chang MD
--- NOTE | 2018-08-28 08:48 | PN ---
DATE: 08/28/2018 SUBJECTIVE: The patient seen and examined. Interim events noted. Consults noted and appreciated. Infectious Disease and Cardiology followup and intervention noted and appreciated. The patient remains in the progressive care unit on telemetry monitoring. The patient feels okay. Denies any specific complaint. No chest pain. No shortness of breath. PHYSICAL EXAMINATION: GENERAL: The patient is in no acute distress. VITAL SIGNS: Stable. HEART: S1 and S2, normal and regular. LUNGS: Good bilateral air exchange. ABDOMEN: Soft, nontender. EXTREMITIES: No edema. No calf swelling. No tenderness. No acute ischemia. CENTRAL NERVOUS SYSTEM: Essentially unchanged. DIAGNOSTIC DATA: Available diagnostic data reviewed. Telemetry monitoring does not show significant arrhythmias. ASSESSMENT AND PLAN: Overall, the patient is medically stable. The patient is scheduled for AFIA today. . Plan as ordered. Donell Harrison MD
[2018-08-28] MEDS: Lactobacillus Acidophilus 500 MU Cap PO SCH ×2 (09:18→20:29)
[2018-08-28 19:07] VITALS: RESP 20
[2018-08-28] MEDS: cefTRIAXone 2 GM in Sodium Chloride 0.9% 100 ML IVPB SCH (20:28)
[2018-08-29 09:21] VITALS: BP 89/51; PULSE 63; TEMP 97.7; O2SAT 100
[2018-08-29] MEDS: Lactobacillus Acidophilus 500 MU Cap PO SCH (09:27)
--- NOTE | 2018-08-29 09:33 | CP.PCM.DIS ---
Provider - Provider Date of Admission: 08/26/18 14:07 Attending physician: Donell Harrison MD Primary care physician: None Consults: 08/25/18 00:46 Cardiology Consult Stat Comment: Consulting Provider: Ken Chang Consulting Physician: Ken Chang Reason for Consult: tachycardia with abnormal EKG 08/25/18 15:58 Infectious Disease Consult Routine Comment: Consulting Provider: Adán Phillips Consulting Physician: Adán Phillips Reason for Consult: Strep infection Time Spent in preparation of Discharge (in minutes): 40 Diagnosis - Discharge Diagnosis (1) Fever Status: Acute (2) Non-cardiac chest pain Status: Acute (3) Abdominal pain Status: Acute (4) Right ovarian cyst Status: Acute (5) Positive SEFERINO (antinuclear antibody) Status: Acute Hospital Course - Lab Results Lab Results: Micro Results 08/25/18 01:05 Blood Blood Culture - Preliminary NO GROWTH AFTER 4 DAYS 08/24/18 18:45 Blood-Venous Blood Culture - Preliminary NO GROWTH AFTER 4 DAYS 08/26/18 14:50 Throat Group A Strep Throat Culture - Final NO BETA STREP GROUP A ISOLATED. 08/24/18 20:41 Urine Random Urine Culture - Final No Growth (<1,000 CFU/ML) Most Recent Lab Values WBC 5.0 K/uL (4.8-10.8) 08/27/18 04:30 RBC 4.07 Mil/uL (3.80-5.20) 08/27/18 04:30 Hgb 12.5 g/dL (12.0-16.0) 08/27/18 04:30 Hct 36.6 % (34.0-47.0) 08/27/18 04:30 MCV 90.0 fl (81.0-99.0) 08/27/18 04:30 MCH 30.7 pg (27.0-31.0) 08/27/18 04:30 MCHC 34.1 g/dL (33.0-37.0) 08/27/18 04:30 RDW 12.7 % (11.5-14.5) 08/27/18 04:30 Plt Count 198 K/uL (130-400) 08/27/18 04:30 MPV 8.2 fl (7.2-11.7) 08/24/18 18:45 Neut % (Auto) 91.9 % (50.0-75.0) H 08/24/18 18:45 Lymph % (Auto) 2.5 % (20.0-40.0) L 08/24/18 18:45 [place] % (Auto) 5.5 % (0.0-10.0) 08/24/18 18:45 Eos % (Auto) 0.1 % (0.0-4.0) 08/24/18 18:45 Baso % (Auto) 0.0 % (0.0-2.0) 08/24/18 18:45 Neut # (Auto) 10.4 K/uL (1.8-7.0) H 08/24/18 18:45 Lymph # (Auto) 0.3 K/uL (1.0-4.3) L 08/24/18 18:45 [place] # (Auto) 0.6 K/uL (0.0-0.8) 08/24/18 18:45 Eos # (Auto) 0.0 K/uL (0.0-0.7) 08/24/18 18:45 Baso # (Auto) 0.0 K/uL (0.0-0.2) 08/24/18 18:45 Neutrophils % (Manual) 84 % (42-75) H 08/24/18 18:45 Band Neutrophils % 5 % (0-2) H 08/24/18 18:45 Lymphocytes % (Manual) 4 % (20-50) L 08/24/18 18:45 Monocytes % (Manual) 6 % (0-10) 08/24/18 18:45 Eosinophils % (Manual) 1 % (0-7) 08/24/18 18:45 Platelet Estimate Normal (NORMAL) 08/24/18 18:45 Hypochromasia (manual) Slight 08/24/18 18:45 Anisocytosis (manual) Slight 08/24/18 18:45 ESR 8 mm/hr (0-20) 08/26/18 13:52 D-Dimer, Quantitative 275 ng/mlDDU (0-230) H 08/24/18 18:45 pO2 21 mm/Hg (30-55) L 08/24/18 20:07 VBG pH 7.48 (7.32-7.43) H 08/24/18 20:07 VBG pCO2 36 mmHg (40-60) L 08/24/18 20:07 VBG HCO3 26.0 mmol/L 08/24/18 20:07 VBG Total CO2 27.9 mmol/L (22-28) 08/24/18 20:07 VBG O2 Sat (Calc) 41.0 % (40-65) 08/24/18 20:07 VBG Base Excess 3.4 mmol/L (0.0-2.0) H 08/24/18 20:07 VBG Potassium 3.3 mmol/L (3.6-5.2) L 08/24/18 20:07 Sodium 137.0 mmol/L (132-148) 08/24/18 20:07 Chloride 105.0 mmol/L (98-107) 08/24/18 20:07 Glucose 102 mg/dL (65-105) 08/24/18 20:07 Lactate 0.9 mmol/L (0.7-2.1) 08/24/18 20:07 FiO2 21.0 % 08/24/18 20:07 Sodium 139 mmol/l (132-148) 08/27/18 04:30 Potassium 3.9 MMOL/L (3.6-5.0) 08/27/18 04:30 Chloride 105 mmol/L (98-107) 08/27/18 04:30 Carbon Dioxide 26 mmol/L (22-30) 08/27/18 04:30 Anion Gap 12 (10-20) 08/27/18 04:30 BUN 14 mg/dl (7-17) 08/27/18 04:30 Creatinine 0.8 mg/dl (0.7-1.2) 08/27/18 04:30 Est GFR ( Amer) > 60 08/27/18 04:30 Est GFR (Non-Af Amer) > 60 08/27/18 04:30 Random Glucose 87 mg/dL (65-105) 08/27/18 04:30 Calcium 8.6 mg/dL (8.4-10.2) 08/27/18 04:30 Phosphorus 3.9 mg/dl (2.5-4.5) 08/26/18 05:29 Magnesium 2.1 MG/DL (1.6-2.3) 08/26/18 05:29 Total Bilirubin 0.2 mg/dl (0.2-1.3) 08/27/18 04:30 AST 18 U/L (14-36) 08/27/18 04:30 ALT 17 U/L (9-52) 08/27/18 04:30 Alkaline Phosphatase 40 U/L (38-126) 08/27/18 04:30 Troponin I < 0.0120 ng/mL (0.00-0.120) 08/25/18 13:37 C-Reactive Protein 7.30 mg/L (0.0-9.9) 08/26/18 13:52 Total Protein 6.5 G/DL (6.3-8.2) 08/27/18 04:30 Albumin 3.7 g/dL (3.5-5.0) 08/27/18 04:30 Globulin 2.8 gm/dL (2.2-3.9) 08/27/18 04:30 Albumin/Globulin Ratio 1.3 (1.0-2.1) 08/27/18 04:30 Triglycerides 44 mg/DL (0-149) 08/25/18 06:15 Cholesterol 73 mg/dL (0-199) 08/25/18 06:15 LDL Cholesterol Direct 36 mg/dL (0-129) 08/25/18 06:15 HDL Cholesterol 34 MG/DL (30-70) 08/25/18 06:15 Vitamin B12 397 pg/mL (239-931) 08/25/18 06:15 Procalcitonin 0.10 NG/ML (0.19-0.49) L 08/26/18 13:52 Venous Blood Potassium 3.3 mmol/L (3.6-5.2) L 08/24/18 20:07 Urine Color Yellow (YELLOW) 08/24/18 20:41 Urine Clarity Slight-cloudy (Clear) 08/24/18 20:41 Urine pH 7.0 (5.0-8.0) 08/24/18 20:41 Ur Specific [place] 1.025 (1.003-1.030) 08/24/18 20:41 Urine Protein 30 mg/dL (NEGATIVE) 08/24/18 20:41 Urine Glucose (UA) Neg mg/dL (NEGATIVE) 08/24/18 20:41 Urine Ketones 80 mg/dL (NEGATIVE) 08/24/18 20:41 Urine Blood Negative (NEGATIVE) 08/24/18 20:41 Urine Nitrate Negative (NEGATIVE) 08/24/18 20:41 Urine Bilirubin Negative (NEGATIVE) 08/24/18 20:41 Urine Urobilinogen 0.2-1.0 mg/dL (0.2-1.0) 08/24/18 20:41 Ur Leukocyte Esterase Neg Mac/uL (Negative) 08/24/18 20:41 Urine RBC (Auto) 3 /hpf (0-3) 08/24/18 20:41 Urine Microscopic WBC 4 /hpf (0-5) 08/24/18 20:41 Ur Squamous Epith Cells 3 /hpf (0-5) 08/24/18 20:41 Urine Bacteria Rare (<OCC) 08/24/18 20:41 Hyaline Casts 0-2 /hpf (0-2) 08/24/18 20:41 Urine Opiates Screen Negative (NEGATIVE) 08/25/18 12:50 Urine Methadone Screen Negative (NEGATIVE) 08/25/18 12:50 Ur Barbiturates Screen Negative (NEGATIVE) 08/25/18 12:50 Ur Phencyclidine Scrn Negative (NEGATIVE) 08/25/18 12:50 Ur Amphetamines Screen Negative (NEGATIVE) 08/25/18 12:50 U Benzodiazepines Scrn Negative (NEGATIVE) 08/25/18 12:50 U Oth Cocaine Metabols Negative (NEGATIVE) 08/25/18 12:50 U Cannabinoids Screen Positive (NEGATIVE) H 08/25/18 12:50 Rheumatoid Arth Interp Negative (NEGATIVE) 08/26/18 13:52 SEFERINO 6 Profile Positive (NEGATIVE) H 08/26/18 13:52 SEFERINO Pattern Homogenous H 08/26/18 13:52 Lyme Disease Screen <0.90 index 08/26/18 13:52 HIV 1&2 Antibody Screen Negative (NEGATIVE) 08/26/18 13:52 Influenza Typ A,B (EIA) Negative for flu a/b (NEGATIVE) 08/24/18 18:45 Anti-Streptolysin O Ab Negative (NEGATIVE) 08/26/18 13:52 Grp A Beta Strep Ag Negative (NEGATIVE) 08/26/18 14:50 - Hospital Course Hospital Course: 33 y/o F with no significant PMH admitted to [facility] s/p Strep infection for evaluation and treatment of chest pain, Abdominal pain and N/V. Patient recently finished a course of Abx for her Strep infection. Afebrile since admission, VS stable, elevated WBC resolved, urine positive for marijuana use, Immunology positive for SEFERINO, negative ASO, Negative repeat Group A strep. Cardiology and ID were consulted, Patient was started on Rocephin. Patient was found to have abnormal EKG, Normal Echo and AFIA. Chest CT PE protocol was unremarkable after elevated D.dimer, Abdominal/pelvis CT showed: Possible duodenitis and ileitis and 1.8 cm R ovarian cyst. Patient is currently medically stable cleared by Cardiology and ID for d/c home and out patient PMD follow up. Patient is tolerating PO, ambulating and agrees with discharge plan. C/w home medications + Aspirin. ER precautions discussed with patient. Discharge Exam - Head Exam Head Exam: NORMOCEPHALIC - Eye Exam Eye Exam: Normal appearance, PERRL Pupil Exam: NORMAL ACCOMODATION - ENT Exam ENT Exam: Mucous Membranes Moist - Neck Exam Neck exam: Normal Inspection - Respiratory Exam Respiratory Exam: Clear to PA & Lateral, NORMAL BREATHING PATTERN, UNREMARKABLE. absent: Wheezes, Respiratory Distress - Cardiovascular Exam Cardiovascular Exam: REGULAR RHYTHM, +S1, +S2. absent: Systolic Murmur - GI/Abdominal Exam GI & Abdominal Exam: Normal Bowel Sounds, Soft, Unremarkable. absent: Distended, Tenderness - Extremities Exam Extremities exam: full ROM, normal inspection - Back Exam Back exam: NORMAL INSPECTION. absent: CVA tenderness (L), CVA tenderness (R) - Neurological Exam Neurological exam: Alert, CN II-XII Intact, Oriented x3 - Psychiatric Exam Psychiatric exam: Normal Affect - Skin Skin Exam: Normal Color Discharge Plan - Discharge Medications Prescriptions: Aspirin [Adult Aspirin] 81 mg PO DAILY #30 tablet. FLUoxetine [Prozac] 20 mg PO DAILY #10 cap - Follow Up Plan Condition: FAIR Disposition: HOME/ ROUTINE Instructions: Chest Pain (DC) Additional Instructions: follow up with primary doctor in 1 week Referrals: Donell Harrison MD [Staff Provider] - Shaggy Urbano MD [Medical Doctor] -
--- NOTE | 2018-08-29 12:00 | CP.PCM.PCO ---
Assessment & Plan - Assessment and Plan (Free Text) Assessment: pt seen and examined feels well this morning;denies sob, cp ]s/p AFIA, results negative pt. cleared for d/c to home today by and pt. instructed to cont ASA low dose f/u with pmd outpatient \above d/w
--- NOTE | 2018-08-29 13:50 | CP.PCM.PN ---
Subjective - Date & Time of Evaluation Date of Evaluation: 08/29/18 Time of Evaluation: 09:00 - Subjective Subjective: feels fine all cultures neg Objective - Vital Signs/Intake and Output Vital Signs (last 24 hours): Temp Pulse Resp BP Pulse Ox 97.7 F 63 20 89/51 L 100 08/29/18 08:45 08/29/18 08:45 08/29/18 08:45 08/29/18 08:45 08/29/18 08:45 - Medications Medications: Current Medications Aspirin (Aspirin Chewable) 81 mg PO DAILY [facility] Last Admin: 08/29/18 09:27 Dose: 81 mg Fluoxetine HCl (Prozac) 20 mg PO DAILY [facility] Last Admin: 08/29/18 09:27 Dose: 20 mg Ceftriaxone Sodium 2 gm/ (Sodium Chloride) 100 mls @ 100 mls/hr IVPB Q24H [facility]; Protocol Last Admin: 08/28/18 20:28 Dose: 100 mls/hr Lactobacillus Acidophilus (Bacid Acidophilus) 1 cap PO BID [facility] Last Admin: 08/29/18 09:27 Dose: 1 cap - Labs Labs: 08/27/18 04:30 08/27/18 04:30 - Constitutional Appears: Well - Head Exam Head Exam: ATRAUMATIC, NORMAL INSPECTION, NORMOCEPHALIC - Eye Exam Eye Exam: EOMI, Normal appearance, PERRL Pupil Exam: NORMAL ACCOMODATION, PERRL - ENT Exam ENT Exam: Mucous Membranes Moist, Normal Exam - Neck Exam Neck Exam: Full ROM, Normal Inspection. absent: Lymphadenopathy - Respiratory Exam Respiratory Exam: Clear to Ausculation Bilateral, NORMAL BREATHING PATTERN - Cardiovascular Exam Cardiovascular Exam: REGULAR RHYTHM, +S1, +S2. absent: Murmur - GI/Abdominal Exam GI & Abdominal Exam: Soft, Normal Bowel Sounds. absent: Tenderness - Rectal Exam Rectal Exam: Deferred - Exam Exam: NORMAL INSPECTION - Extremities Exam Extremities Exam: Full ROM, Normal Capillary Refill, Normal Inspection. absent: Joint Swelling, Pedal Edema - Back Exam Back Exam: NORMAL INSPECTION - Neurological Exam Neurological Exam: Alert, Awake, CN II-XII Intact, Normal Gait, Oriented x3 - Psychiatric Exam Psychiatric exam: Normal Affect, Normal Mood - Skin Skin Exam: Dry, Intact, Normal Color, Warm Assessment and Plan - Assessment and Plan (Free Text) Assessment: all cultures negative follow up with PMD re- + SEFERINO
--- NOTE | 2018-08-29 18:25 | PN ---
DATE: 08/29/2018 SUBJECTIVE: The patient denies any chest pain, throat pain, or difficulty swallowing. PHYSICAL EXAMINATION: VITAL SIGNS: Blood pressure 98/60, heart rate 71, temperature 98, respirations 18. HEENT: Normocephalic. CHEST: Clear. HEART: S1 and S2, regular. ABDOMEN: Soft. EXTREMITIES: No edema. LABORATORY DATA: Blood culture is negative after 4 days. Throat culture; no beta streptococcus group A isolated. ASSESSMENT: 1. Serum group A beta streptococcus antigen is positive. 2. Sinus tachycardia and ischemic anterolateral EKG changes on admission. 3. Anxiety disorder. RECOMMENDATIONS: I discussed the case with the patient, her mother and the nurse practitioner. The patient can be discharged from the cardiac point of view on aspirin 81 mg once a day. The patient was recommended to undergo an outpatient treadmill stress test, and the patient was strongly advised to abstain from future recreational drug abuse as some of these agents can be laced with other ingredients that could have contributed to the ischemic EKG on admission. According to the patient, she got the weed from a friend, but the source of that weed is unknown and could be a street product. Ken Chang MD
--- NOTE | 2018-08-31 10:04 | PQF ---
PROVIDER RESPONSE TEXT: Sepsis ruled out from DDX DDX: Non-cardiac chest pain REVIEWER QUERY TEXT: Rule Out Sepsis Clarification Rule out Sepsis is documented in the Medical Record. Please clarify whether: -- Patient has sepsis - Please document confirmed, suspected or probable causative organism - Please document confirmed, suspected or probable localized infection - Please clarify if sepsis is related to a device - Please clarify if sepsis was present on admission -- Sepsis was ruled out (include corresponding diagnosis for patient?s clinical picture and treatment ) -- Patient had sepsis which is resolved -- Other, please specify WBC:11.4->4.8-.4.5 left shift Temp.: 101->98.5->98.9 Pulse:113->79->83->74 H and P: Chest pain, Streptococcal pharyngitis, duodenitis and ileitis, ovarian cyst, and anxiety. 3/2 Cardiology consult includes: Assessment: Strep Throat- Rule out septic bacteremia 33 ID consult includes: Strep Ag positive in blood on Levaquin will switch to Rocephin --awat echo/c ardio eval; May need AFIA to r/o invasive strep check ASO titer , RF , SEFERINO Await final blood cultures The patient's Clinical Indicators include: --- Query created by: Rosa Garcia on 08/28/2018 11:44 AM Electronically signed by: Clemente Guzman 08/31/2018 8:37 AM
== END 2018-08-29 14:25 | disposition home or self-care (01) | DRG 313 ==
LOC: H.ER 18:25 → H.ERHOLD 08-25 00:12 → H.TEL 08-25 03:18 → OBSVTOIN 08-26 14:07
PROVIDERS: ADMIT Internal Medicine; ATTEND Internal Medicine
PROC: B246ZZ4 Ultrasonography of Right and Left Heart, Transesophageal (ICD-10-PCS; principal; 2018-08-28)
DX: R07.89 Other chest pain (principal); J02.0 Streptococcal pharyngitis; K29.80 Duodenitis without bleeding; E87.6 Hypokalemia; F41.9 Anxiety disorder, unspecified; F32.9 Major depressive disorder, single episode, unspecified; K52.9 Noninfective gastroenteritis and colitis, unspecified; N83.201 Unspecified ovarian cyst, right side; Z87.891 Personal history of nicotine dependence; R00.0 Tachycardia, unspecified; R76.0 Raised antibody titer; R79.1 Abnormal coagulation profile